=== PATIENT | female | born 1990 | race American Indian/Alaskan Native ===

== ENCOUNTER 2021-11-02 18:54 | Emergency (ER) | payer MEDICAID ==
[2021-11-02 20:32] VITALS: BP 102/61
== END 2021-11-03 02:50 | disposition left against medical advice (07) ==
LOC: ED 18:54
DX: J02.9 Acute pharyngitis, unspecified (principal); Z53.21 Procedure and treatment not carried out due to patient leaving prior to being seen by health care provider